=== PATIENT | female | born 2000 | race Caucasian/White ===

== ENCOUNTER 2022-10-21 10:25 | Emergency (ER) | payer OTHER, SELFPAY ==
[2022-10-21 10:43] VITALS: BMI 26.4
[2022-10-21 10:48] VITALS: BP 114/77; PULSE 84; O2SAT 96
--- NOTE | 2022-10-21 10:50 | W.ED.EYEPROB ---
HPI - Eye Problem General: Chief complaint: Eye Problems Stated complaint: eye irritation Time Seen by Provider: 10/21/22 10:26 Source: patient Mode of arrival: ambulatory Limitations: no limitations History of Present Illness: Patient is a 22-year-old female who presents to ED today with a complaint of right eye redness and discomfort that she noticed yesterday after she thinks she may have gotten some type of chemical splashed in her eye while at work. 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 Patient states she has not had any drainage from the eye. No visual loss. Denies foreign body sensation. chief complaint: eye pain and eye redness Onset (ago): hour(s) Onset description: sudden Duration: constant Location: right eye Eye Symptoms: burning, redness and pain Place: work Mechanism: chemical exposure (thinks possibly although doesn't remember it directly happening ) Severity: moderate If Pain, Quality: burning Associated symptoms: Reports no associated symptoms; Denies fever(s), headache(s), nausea, neck pain or vomiting Treatments Prior to Arrival: irrigated eye Related Data: Patient tetanus UTD: Yes Review of Systems Const: Denies: fever(s), chills, body aches, fatigue or malaise Eyes: Reports: eye discomfort; Denies: change in vision, blind spots, eye discharge, floaters or seeing flashes Card: Denies: chest pain Resp: Denies: dyspnea, productive cough or non-productive cough GI: Denies: nausea or vomiting Musc: Denies: neck pain Skin/Breast: Denies: rash Neuro: Denies: headache(s) Physical Exam Const: COMMON NORMALS: no acute distress, average body habitus, patient oriented x3, no limitations, healthy appearing, alert and well nourished GENERAL APPEARANCE: cooperative ORIENTATION/CONSCIOUSNESS: Yes awake, Yes oriented to person, Yes oriented to place and Yes oriented to time HENMT: COMMON NORMALS: normocephalic and atraumatic HEAD & SCALP: normal to inspection, normocephalic and atraumatic FACE & SINUS: normal facial exam Eye: COMMON NORMALS: Equal, round and reactive pupils present, EOMs intact bilaterally, no scleral icterus, no papilledema and normal visual gamez by confrontation GENERAL EYE: normal light reflex VISUAL ACUITY: Yes acuity normal VISUAL GAMEZ: No peripheral vision loss and No central vision loss ALIGNMENT: Yes alignment normal PERIORBITAL: periorbital findings normal EYELID: eyelids normal CONJUNCTIVA: Yes conjunctival abnormal positive right conjunctival injection SCLERA: sclerae normal CORNEA: Yes corneas normal and fluorescein used (no stain uptake noted) PUPIL: Yes Equal, round and reactive pupils present DIRECT OPHTHALMOSCOPY: Yes normal light reflex and Yes no papilledema Neck/C-Spine: COMMON NORMALS: no lymphadenopathy Neuro: COMMON NORMALS: patient oriented x3 SENSORIUM/ORIENTATION: Yes alert, Yes oriented to person, Yes oriented to place and Yes oriented to time Course Vital Signs: Vital signs: Vital Signs Pulse Rate 84 10/21/22 10:48 Blood Pressure 114/77 10/21/22 10:48 Pulse Oximetry 96 10/21/22 10:48 Oxygen Delivery Me thod 10/21/22 10:48 MDM - Eye Problem Medical Decision Making Eye was copiously irrigated and examined. She has diffuse conjunctival injection. Eye exam/fluorescein stain/simental lamp revealed no other abnormalities. Recommend she continue to irrigate eye at home and will have her follow up with Dr. Headley' office in case symptoms do not improve over the next 24-48 hours. Medical Records I reviewed the patient's medical records. Discharge Plan Discharge Patient Disposition: Home Clinical Impression: Conjunctivitis of right eye Qualifiers: Conjunctivitis type: acute Acute conjunctivitis type: unspecified Qualified Code(s): H10.31 - Unspecified acute conjunctivitis, right eye Condition: Stable Discharge Orders: Discharge ED (Routine); Ordered 10/21/22 Ordered By: Kim Vilchis Referrals: Bebe Cunningham APN [Primary Care Provider] - Activity Restrictions/Additional Instructions: As we discussed case management will try to refer you to Dr. Headley's office for follow-up if symptoms do not improve in the next 24 to 48 hours. You need to return to the emergency department for worsening eye pain, loss of vision, severe foreign body sensation, or any other concerns you may have. Coding Level of Care Code ED Home Health Rn for Ean Maciel
[2022-10-21 12:01] VITALS: BP 113/64; PULSE 84; O2SAT 99
--- NOTE | 2022-10-22 08:42 | DCPLANNER ---
Addendum entered by Bernice Ashby 10/22/22 13:08: senior manager mergers & acquisitions called Dr. Headley office to confirm that clinic received patients information. senior manager mergers & acquisitions was told that clinic did receive patients information. Patients information will be reviewed. Clinic will call patient with appointment information. Original Note: senior manager mergers & acquisitions had message to schedule a follow up appointment for patient with opthalmology. senior manager mergers & acquisitions faxed patients information to Dr. Headley clinic. Patients information will be reviewed. Clinic will call patient with appointment information.
== END 2022-10-21 12:02 | disposition home or self-care (01) ==
PROVIDERS: Emergency Provider Physician Assistant; PCP Nurse Practitioner Family
DX: H10.31 Unspecified acute conjunctivitis, right eye (principal)
CPT/HCPCS: 99283